=== PATIENT | female | born 1965 | race African-American/Black ===

== ENCOUNTER 2016-07-21 03:20 | Inpatient (IN) | payer MEDICAID, OTHER ==
[~2016-07-21] VITALS: Ht 170.2 cm; Wt 104.5 kg
[2016-07-21] VITALS (8 sets, daily range): BP systolic 108–138; BP diastolic 56–76; PULSE 82–92; RESP 19–20; TEMP 98–98.8; O2SAT 96–97
[~2016-07-21 03:20] MED LIST: CELE40TA PO; MOBI15TA PO; NORV100C PO; QUET1TAB67 PO; REYA150C4 PO; SERO100T PO; TRUVTAB2 PO
[2016-07-21] MEDS ORDERED: SODIUM CHLORID 0.9% 500 ML INJ 500 ML IV ONE (04:00)
[2016-07-21] MEDS ORDERED: PANTOPRAZOLE SODIUM 40 MG VIAL IV PUSH ONE (04:00)
--- NOTE | 2016-07-21 04:02 | PD ---
HPI Chief Complaint: Crawford act Time Seen by Provider: 03:39 Travel History International Travel<30 days: No Contact w/Intl Traveler<30days: No History of Present Illness HPI The patient is a 50 year old male who presents to the [facility] emergency department with a history of being brought in as a Crawford act due to an altercation with her sister prior to arrival. According to the Crawfodr act, the patient had expressed a desire to kill her sister. On arrival to this facility , the patient reports that she was just talking. She reports that she has no intention of harming her sister. Her sister had been asking her for money which made her angry. The Crawford act also states that the patient has a history of bipolar disorder and schizophrenia. The patient denies this. She denies taking any medications for this. The patient denies any suicidal or homicidal ideations. The patient reports that she has been drinking beer this evening. She reports that she has attempted to harm herself when she was a teenager by cutting her left arm. The patient reports that she would never harm herself again. On my arrival to the room, the patient reports that she has left upper quadrant abdominal discomfort. She reports that she has a pressure sensation like gas in that area. Otherwise, on review of systems the patient denies any recent fevers cough, congestion, neck pain, chest pain, shortness of breath, vomiting, diarrhea, urinary symptoms, or neurologic symptoms. PFS Past Medical History Narrative Medical The patient's past medical history is significant for a history of HIV, diagnosed in 1999. The patient reports that she last had her viral load checked last month and it was reportedly undetectable. The patient reports that she is taking her retroviral medications. The patient has a history of asthma. The patient according to the record has a history of psychiatric disorder. Asthma: Yes Autoimmune Disease: Yes (HIV) Bipolar Disorder: Yes Anxiety: Yes Depression: Yes Diabetes: No Diminished Hearing: No Psychiatric: Yes Schizophrenia: No Seizures: No Past Surgical History Narrative Surgical The patient's past surgical history is significant for a hysterectomy. Gynecologic Surgery: Yes (HYSTERECTOMY) Hysterectomy: Yes (TOTAL) Social History Alcohol Use: Yes (beer daily) Tobacco Use: Yes (1 PK DAILY) Substance Use: Yes Allergies-Medications (Allergen,Severity, Reaction): Coded Allergies: Motrin (Unverified Allergy, Severe, 08/29/13) Reported Meds & Prescriptions Reported Meds & Active Scripts Active Reported Celexa (Citalopram Hydrobromide) 40 Mg Tab 40 Mg PO DAILY Seroquel (Quetiapine Fumarate) 25 Mg Tab 25 Mg PO AT 12 NOON Seroquel (Quetiapine Fumarate) 100 Mg Tab 100 Mg PO HS Norvir (Ritonavir) 100 Mg Cap 100 Mg PO DAILY Truvada (Emtricitabine/Tenofovir) Tab 1 Tab PO DAILY Reyataz (Atazanavir) 150 Mg Cap 300 Mg PO DAILY Mobic (Meloxicam) 15 Mg Tab 15 Mg PO BID Review of Systems Except as stated in HPI: all other systems reviewed are Neg General / Constitutional: No: Fever Eyes: No: Visual changes HENT: No: Headaches Cardiovascular: No: Chest Pain or Discomfort Respiratory: No: Shortness of Breath Gastrointestinal: Positive: Abdominal Pain, No: Nausea, Vomiting, Diarrhea, Hematemesis, Hematochezia, Changes in Bowel Habits, Indigestion, Loss of Appetite Genitourinary: No: Dysuria Musculoskeletal: No: Pain Skin: No Rash Neurologic: No: Weakness Psychiatric: No: Depression Endocrine: No: Polydipsia Hematologic/Lymphatic: No: Easy Bruising Physical Exam Narrative General: The patient is a well-developed well-nourished female in no acute distress. Head and Neck exam: Head is normocephalic atraumatic. Eyes: EOMI, pupils are equal round and reactive to light. Nose: Midline septum with pink mucous membranes Mouth: Dentition unremarkable. Moist mucus membranes. Posterior oropharynx is not erythematous. No tonsillar hypertrophy. Uvula midline. Airway patent. Neck: No palpable lymphadenopathy. No nuchal rigidity. No thyromegaly. Cardiovascular: Regular rate and rhythm without murmurs, gallops, or rubs. Lungs: Clear to auscultation bilaterally. No wheezes, rhonchi, or rales. Abdomen: Soft, with reported discomfort on palpation of the left upper quadrant of the abdomen, no other tenderness on palpation of the other quadrants of the abdomen. No guarding, rebound, or rigidity. Normal bowel sounds are audible. No tenderness on palpation of McBurney's point. Negative Tracy sign. Extremities: No clubbing, cyanosis, or edema. 2+ pulses in all 4 extremities. No calf tenderness on palpation. Back: No costovertebral angle tenderness to palpation. Neurologic Exam: Grossly nonfocal. Skin Exam: No rash noted. Intact skin that is warm and dry. Data Data Last Documented VS Vital Signs Date Time Temp Pulse Resp B/P Pulse Ox O2 Delivery O2 Flow Rate FiO2 07/21/16 04:19 98.5 88 20 132/76 96 Orders Electrocardiogram (07/21/16 03:53) Complete Blood Count With Diff (07/21/16 03:53) Comprehensive Metabolic Panel (07/21/16 03:53) Creatine Kinase (Cpk) (07/21/16 03:53) Ckmb (Isoenzyme) Profile (07/21/16 03:53) Troponin I (07/21/16 03:53) Lipase (07/21/16 03:53) Chest, Single Ap (07/21/16 03:53) Iv Access Insert/Monitor (07/21/16 03:53) Ecg Monitoring (07/21/16 03:53) Oximetry (07/21/16 03:53) Psych Screen (07/21/16 03:53) Ed Urine Pregnancytest Poc (07/21/16 03:53) Drug Screen, Random Urine (07/21/16 03:53) Alcohol (Ethanol) (07/21/16 03:53) Salicylates (Aspirin) (07/21/16 03:53) Tylenol (Acetaminophen) (07/21/16 03:53) Sodium Chlorid 0.9% 500 Ml Inj (Ns 500 M (07/21/16 04:00) Pantoprazole Inj (Protonix Inj) (07/21/16 04:00) CKMB (07/21/16 04:03) CKMB% (07/21/16 04:03) Urinalysis - C+S If Indicated (07/21/16 05:15) Admit Order (Ed Use Only) (07/21/16 05:27) Labs Laboratory Tests Test 07/21/16 07/21/16 03:35 04:03 Urine Color LIGHT-YELLOW Urine Turbidity CLEAR Urine pH 5.0 Urine Specific [place] 1.003 Urine Protein NEG mg/dL Urine Glucose (UA) NEG mg/dL Urine Ketones NEG mg/dL Urine Occult Blood NEG Urine Nitrite NEG Urine Bilirubin NEG Urine Urobilinogen LESS THAN 2.0 MG/DL Urine Leukocyte Esterase NEG Urine RBC LESS THAN 1 /hpf Microscopic Urinalysis Comment CULT NOT INDICATED Urine Opiates Screen NEG Urine Barbiturates Screen NEG Urine Amphetamines Screen NEG Urine Benzodiazepines Screen NEG Urine Cocaine Screen POS Urine Cannabinoids Screen NEG White Blood Count 6.7 TH/MM3 Red Blood Count 4.00 MIL/MM3 Hemoglobin 11.8 GM/DL Hematocrit 35.4 % Mean Corpuscular Volume 88.6 FL Mean Corpuscular Hemoglobin 29.5 PG Mean Corpuscular Hemoglobin 33.3 % Concent Red Cell Distribution Width 14.0 % Platelet Count 249 TH/MM3 Mean Platelet Volume 8.3 FL Neutrophils (%) (Auto) 49.4 % Lymphocytes (%) (Auto) 44.5 % Monocytes (%) (Auto) 4.3 % Eosinophils (%) (Auto) 1.1 % Basophils (%) (Auto) 0.7 % Neutrophils # (Auto) 3.3 TH/MM3 Lymphocytes # (Auto) 3.0 TH/MM3 Monocytes # (Auto) 0.3 TH/MM3 Eosinophils # (Auto) 0.1 TH/MM3 Basophils # (Auto) 0.0 TH/MM3 CBC Comment DIFF FINAL Differential Comment Sodium Level 145 MEQ/L Potassium Level 3.7 MEQ/L Chloride Level 107 MEQ/L Carbon Dioxide Level 24.4 MEQ/L Anion Gap 14 MEQ/L Blood Urea Nitrogen 4 MG/DL Creatinine 0.83 MG/DL Estimat Glomerular Filtration 88 ML/MIN Rate Random Glucose 88 MG/DL Calcium Level 8.5 MG/DL Total Bilirubin 0.5 MG/DL Aspartate Amino Transf 57 U/L (AST/SGOT) Alanine Aminotransferase 47 U/L (ALT/SGPT) Alkaline Phosphatase 91 U/L Total Creatine Kinase 2081 U/L Creatine Kinase MB 22.3 NG/ML Creatine Kinase MB % 1.1 % Troponin I LESS THAN 0.02 NG/ML Total Protein 8.3 GM/DL Albumin 3.5 GM/DL Lipase 77 U/L Salicylates Level 4.6 MG/DL Acetaminophen Level LESS THAN 2.0 MCG/ML Ethyl Alcohol Level 229 MG/DL MDM Medical Decision Making Medical Screen Exam Complete: Yes Emergency Medical Condition: Yes Medical Record Reviewed: Yes Interpretation(s) Last Impressions Chest X-Ray 07/21/16 0353 Signed Impressions: Service Date/Time: Thursday, July 21, 2016 04:21 - CONCLUSION: Left lower lobe infiltrate. Stefano Barrera Jr., MD Differential Diagnosis Schizophrenia with acute agitation, versus bipolar disorder with elton and agitation, versus substance induced mood disorder Narrative Course During the course of the patients emergency department visit, the patients history, examination, and differential diagnosis were reviewed with the patient. The patient had IV access obtained and blood work sent for analysis. The patient was placed on a front desk monitor with oximetry and blood pressure monitoring. The patient's Crawford act was reviewed. A psychiatric screen was ordered. The patient had an EKG done on arrival that shows a sinus rhythm heart rate of 91, QRS duration 93 ms, QTC 413 ms, no acute ST segment elevation or depression, T waves are inverted in V1, V2. The patient was initially provided normal saline a 500 mL bolus 1, Protonix 40 mg IV for suspected alcohol-related gastritis. The patients laboratory studies were reviewed and remarkable for a white count of 6.7, hemoglobin 11.8, platelets 249 with 44.5 lymphocytes, CMP is remarkable for BUN of 4, GFR be 8, AST 57, CPK elevated at 2081, MB percent 1.1, troponin I less than 0.02, lipase 77, urine drug screen is positive for cocaine which may be the cause of the rhabdomyolysis, acetaminophen less than 2, alcohol level CCXXIX, salicylate 4.6, urinalysis unremarkable. Radiology studies were reviewed and remarkable for a chest x-ray that shows a left lower lobe infiltrate. The patient was given azithromycin 500 mg IV. The patients results were discussed with the patient, including the plan of care. I explained that further testing and/ or monitoring is indicated based on the patients history, examination, and/ or laboratory findings. Therefore, I recommended admission for additional evaluation. The patient expressed understanding and was agreeable with this plan. The patient was admitted to the hospital in stable condition and sent to a bed under the care of the [facility]. Physician Communication Physician Communication The patient's case was discussed with Dr. Vallecillo who did agree to admit the patient for further evaluation and treatment at this time. Diagnosis Primary Impression: Rhabdomyolysis Qualified Code: M62.82 - Non-traumatic rhabdomyolysis Additional Impressions: Polysubstance abuse Agitation Infiltrate of lung present on imaging of chest Admitting Information Admitting Physician Requests: Sharona Sibley MD July 21, 2016 04:02
[2016-07-21 04:20] LABS: AUTOMATED NEUTROPHIL # 3.3 TH/MM3 (1.8-7.7); BASOPHIL % 0.7 % (0.0-2.0); EOSINOPHIL # 0.1 TH/MM3 (0-0.4); EOSINOPHIL % 1.1 % (0.0-4.0); HEMATOCRIT 35.4 % (35.0-46.0); HEMO FLAGS DIFF FINAL; LYMPH % 44.5 % (9.0-44.0); MEAN CELL VOLUME 88.6 FL (80.0-100.0); MEAN CORPUSCULAR HEMOGLOBIN 29.5 PG (27.0-34.0); MEAN CORPUSCULAR HGB CONC 33.3 % (32.0-36.0); MONO % 4.3 % (0.0-8.0); NEUT % 49.4 % (16.0-70.0); PLATELET COUNT 249 TH/MM3 (150-450); WHITE BLOOD COUNT 6.7 TH/MM3 (4.0-11.0)
[2016-07-21 04:24] LABS: AMPHETAMINE, URINE NEG (NEG); BARBITURATES, URINE NEG (NEG); COCAINE, URINE POS (NEG)
[2016-07-21 04:41] LABS: ANION GAP 14 MEQ/L (5-15); AST (GOT) 57 U/L (15-37); BICARBONATE 24.4 MEQ/L (21.0-32.0); BLOOD UREA NITROGEN 4 MG/DL (7-18); CHLORIDE 107 MEQ/L (98-107); GLOMERULAR FILTRATION RATE 88 ML/MIN (>89); POTASSIUM 3.7 MEQ/L (3.5-5.1); SODIUM (NA) 145 MEQ/L (136-145)
[2016-07-21 04:56] LABS: ACETAMINOPHEN LESS THAN 2.0 MCG/ML (10.0-30.0); ALKALINE PHOSPHATASE 91 U/L (45-117); ALT (GPT) 47 U/L (10-53); CREATINE KINASE 2081 U/L (26-192); TOTAL BILIRUBIN ADULT 0.5 MG/DL (0.2-1.0)
[2016-07-21 05:08] LABS: CKMB 22.3 NG/ML (0.5-3.6)
[2016-07-21] MEDS ORDERED: SODIUM CHLOR 0.9% 1000 ML INJ 1,000 ML IV SCH (05:31)
--- NOTE | 2016-07-21 05:39 | RADRPT ---
EXAM DATE/TIME: 07/21/2016 04:21 [facility] COMPARISON: No previous studies available for comparison. INDICATIONS : Chest pain and cough. MEDICAL HISTORY : HIV Asthma SURGICAL HISTORY : None. ENCOUNTER: Initial ACUITY: 3 days PAIN SCORE: 6/10 LOCATION: Left upper chest FINDINGS: A single portable frontal view the chest shows a left lower lobe infiltrate. Right lung is clear. Hea rt is normal in size. No effusions. CONCLUSION: Left lower lobe infiltrate. Stefano Barrera Jr., MD on July 21, 2016 at 5:36 Board Certified Radiologist. This report was verified electronically.
[2016-07-21] MEDS ORDERED: SODIUM CHLORIDE 0.9% FLUSH 10 ML FLUSH IV FLUSH PRN (05:45)
[2016-07-21] MEDS ORDERED: NALOXONE HCL 0.4 MG/ML AMP IV PRN (05:45)
[2016-07-21 06:58] LABS: BLOOD, URINE NEG (NEG); GLUCOSE,URINE NEG (NEG); KETONE, URINE NEG (NEG); NITRITE,URINE NEG (NEG); URINE COLOR LIGHT-YELLOW (YELLW/STRAW)
[2016-07-21 07:03] LABS: COMMENT (UR) CULT NOT INDICATED; CULTURE IF INDICATED CULT NOT INDICATED
[2016-07-21] MEDS ORDERED: AZITHROMYCIN INJ 500 MG in SODIUM CHLOR 0.9% 250 ML INJ 250 ML IV ONE (07:30)
[2016-07-21] MEDS: SODIUM CHLOR 0.45% 1000 ML INJ 1,000 ML IV SCH ×2 (09:00→23:23)
[2016-07-21] MEDS ORDERED: CITALOPRAM HYDROBROMIDE 40 MG TAB PO SCH (09:00)
[2016-07-21] MEDS ORDERED: LORazepam 2 MG/ML VIAL IV PUSH PRN ×2 (09:30)
[2016-07-21] MEDS ORDERED: FLUMAZENIL 0.5 MG/5 ML VIAL IV PUSH PRN (09:30)
[2016-07-21] MEDS ORDERED: LORazepam 2 MG TAB PO PRN (09:30)
[2016-07-21] MEDS ORDERED: LORazepam 1 MG TAB PO PRN (09:30)
[2016-07-21] MEDS ORDERED: RESP: ALBUTEROL 2.5 MG/IPRATROPIUM 0.5 MG NEB (PRN) NEB (09:30)
--- NOTE | 2016-07-21 09:34 | HHI.HP ---
[facility] Primary Care Physician Admission Diagnosis Rhabdomyolysis, Agitation, Crawford act Diagnoses: Chief Complaint: Chest pain Travel History International Travel<30 Days: No Contact w/Intl Traveler <30 Da: No Traveled to Known Affected Are: No History of Present Illness The patient is a 50-year-old female with a past medical history of HIV who is presenting to the hospital under a Crawford act. The patient said she was talking with her sister and was sort of arguing when she said a few things that she did not mean and was then Crawford acted. The patient said that she had no real ideas of harming her sister or herself. She said she had been drinking beers and that was one of the reasons she was in an argument with her sister. The patient says he typically drinks every day. She did say that about 5 days ago she used a little marijuana and cocaine but she says she does not do that typically. Over the past 4 days the patient has had significant pain around her left breast area. Specifically she says the pain is located under her left breast and is rated at a 9 out of 10 in severity. It is constant in nature. She does have worsening of the chest pain with deep breathing. She also says it hurts more when she coughs. The patient said she has also had cold-like symptoms for the past few days. She endorses green sputum production. She has experienced chills and night sweats. She says she has been constipated for the past few days. She says that she last saw her infectious disease doctor one month ago and everything was going well. She recently relocated from [place] and needs to find a new infectious disease doctor here. The patient says she has a history of depression but she has been taken off of all her pills and she currently denies any depression. Review of Systems Except as stated in HPI: all other systems reviewed are Neg Past Family Social History Past Medical History HIV Asthma Depression Osteoarthritis Allergies: Coded Allergies: Motrin (Unverified Allergy, Severe, 08/29/13) Active Ordered Medications Current Medications Medications (Trade) Dose Ordered Sig/Winnie Route Start Time Stop Time Status Last Admin (NS Flush) 2 ml UNSCH PRN IV FLUSH 07/21/16 05:45 (NS Flush) 2 ml BID IV FLUSH 07/21/16 09:00 Naloxone HCl 0.4 mg 0.4 mg UNSCH PRN IV 07/21/16 05:45 (1/2 NS 1000 ml Inj) 1,000 ml @ 100 mls/hr Q10H IV 07/21/16 09:00 (Reyataz) 300 mg DAILY PO 07/21/16 09:00 (Truvada 200-300 Mg) 1 tab DAILY PO 07/21/16 09:00 Ritonavir 100 mg 100 mg DAILY PO 07/21/16 09:00 (Rocephin Inj/NS Inj) 100 ml @ 200 mls/hr Q24H IV 07/21/16 09:00 Oxycodone HCl 5 mg 5 mg Q4H PRN PO 07/21/16 10:00 (Zithromax Inj/ NS 250 ml Inj) 250 ml @ 250 mls/hr Q24H IV 07/22/16 08:00 UNV (Ofirmev Inj) 1,000 mg Q8HR IV 07/21/16 09:30 07/22/16 22:01 UNV Family History Her mother had a large stroke She says a lot of people in her family have bipolar disorder and schizophrenia Social History She smokes 5 cigarettes daily. She drinks 2+ beers daily. She says she does not typically use illicit substances. Physical Exam Vital Signs Vital Signs Date Time Temp Pulse Resp B/P Pulse Ox O2 Delivery O2 Flow Rate FiO2 07/21/16 07:10 98.4 90 20 108/58 96 07/21/16 06:31 99 18 138/71 99 07/21/16 04:19 98.5 88 20 132/76 96 Physical Exam GENERAL: This is a well-nourished, well-developed patient, in no apparent distress. SKIN: No rashes, ecchymoses or lesions. Cool and dry. HEAD: Atraumatic. Normocephalic. No temporal or scalp tenderness. EYES: Pupils equal round and reactive. Extraocular motions intact. No scleral icterus. No injection or drainage. ENT: Nose without bleeding, purulent drainage or septal hematoma. Throat without erythema, tonsillar hypertrophy or exudate. Uvula midline. Airway patent. NECK: Trachea midline. No JVD or lymphadenopathy. Supple, nontender, no meningeal signs. CARDIOVASCULAR: Regular rate and rhythm without murmurs, gallops, or rubs. RESPIRATORY: Clear to auscultation. Breath sounds equal bilaterally. No wheezes , rales, or rhonchi. GASTROINTESTINAL: Abdomen soft, nondistended. Tender to palpation in the left upper quadrant. No hepato-splenomegaly, or palpable masses. No guarding. MUSCULOSKELETAL: Left chest wall and left upper thoracic area tender to palpation. Extremities with trace edema. NEUROLOGICAL: Awake and alert. Cranial nerves II through XII intact. Motor and sensory grossly within normal limits. Five out of 5 muscle strength in all muscle groups. Normal speech. PSYCH: Flattened affect. Laboratory Laboratory Tests Test 07/21/16 07/21/16 03:35 04:03 Urine Color LIGHT-YELLOW Urine Turbidity CLEAR Urine pH 5.0 Urine Specific [place] 1.003 Urine Protein NEG Urine Glucose (UA) NEG Urine Ketones NEG Urine Occult Blood NEG Urine Nitrite NEG Urine Bilirubin NEG Urine Urobilinogen LESS THAN 2.0 Urine Leukocyte Esterase NEG Urine RBC LESS THAN 1 Microscopic Urinalysis Comment CULT NOT INDICATED Urine Opiates Screen NEG Urine Barbiturates Screen NEG Urine Amphetamines Screen NEG Urine Benzodiazepines Screen NEG Urine Cocaine Screen POS Urine Cannabinoids Screen NEG White Blood Count 6.7 Red Blood Count 4.00 Hemoglobin 11.8 Hematocrit 35.4 Mean Corpuscular Volume 88.6 Mean Corpuscular Hemoglobin 29.5 Mean Corpuscular Hemoglobin 33.3 Concent Red Cell Distribution Width 14.0 Platelet Count 249 Mean Platelet Volume 8.3 Neutrophils (%) (Auto) 49.4 Lymphocytes (%) (Auto) 44.5 Monocytes (%) (Auto) 4.3 Eosinophils (%) (Auto) 1.1 Basophils (%) (Auto) 0.7 Neutrophils # (Auto) 3.3 Lymphocytes # (Auto) 3.0 Monocytes # (Auto) 0.3 Eosinophils # (Auto) 0.1 Basophils # (Auto) 0.0 CBC Comment DIFF FINAL Differential Comment Sodium Level 145 Potassium Level 3.7 Chloride Level 107 Carbon Dioxide Level 24.4 Anion Gap 14 Blood Urea Nitrogen 4 Creatinine 0.83 Estimat Glomerular Filtration 88 Rate Random Glucose 88 Calcium Level 8.5 Total Bilirubin 0.5 Aspartate Amino Transf 57 (AST/SGOT) Alanine Aminotransferase 47 (ALT/SGPT) Alkaline Phosphatase 91 Total Creatine Kinase 2081 Creatine Kinase MB 22.3 Creatine Kinase MB % 1.1 Troponin I LESS THAN 0.02 Total Protein 8.3 Albumin 3.5 Lipase 77 Salicylates Level 4.6 Acetaminophen Level LESS THAN 2.0 Ethyl Alcohol Level 229 Result Diagram: 07/21/16 0403 07/21/16 0403 Imaging Last Impressions Chest X-Ray 07/21/16 0353 Signed Impressions: Service Date/Time: Thursday, July 21, 2016 04:21 - CONCLUSION: Left lower lobe infiltrate. Stefano Barrera Jr., MD Assessment and Plan Assessment and Plan Depression The patient was Crawford acted after having an argument with her sister. The patient denies having intention of hurting her sister for herself. - Psychiatry has been consulted. - Continue sitter. Left sided chest and back pain/ CAP The patient has had chest and back pain for the past few days. Breathing deeply makes it worse. She has associated cough and sputum production. Chest x -ray with left lower lobe infiltrate. Initial troponin negative. EKG without evidence of ischemia. - Treated for pneumonia with ceftriaxone and azithromycin. - Sputum culture and Gram stain. Blood cultures 2. - oxygen and nebs as needed. - thoracic x ray pending. - pain control with a bowel regimen. - telemetry. Rhabdomyolysis CPK noted to be over 2000 on admission. The patient endorses dehydration and has been consuming large amounts of alcohol. - Continue half-normal saline. - Monitor CPK and creatinine. - Advance diet as tolerated. Alcohol abuse Alcohol level was 229 on admission. - CIWA protocol. - seizure precautions. - mvi, folate and thiamine daily. - Cessation instruction. Nicotine/ Cocaine/ MJ use Tox screen positive for cocaine. - Cessation instruction. - Nicotine patch. HIV Last seen by ID one month ago. She needs to find an ID doctor in the area. CXR with infiltrate. - antibiotics as above. - continue antiretrovirals. - Check CD4 count. PPx: SCDs. Discussed Condition With John. Marcell Treviño DO July 21, 2016 09:34
--- NOTE | 2016-07-21 10:09 | RADRPT ---
EXAM DATE/TIME: 07/21/2016 09:53 [facility] COMPARISON: No previous studies available for comparison. INDICATIONS : Back pain for 4 days. MEDICAL HISTORY : Asthma. HIV. SURGICAL HISTORY : None. ENCOUNTER: Initial ACUITY: 4 - 6 days PAIN SCORE: 9/10 LOCATION: Thoracic spine. FINDINGS: There is normal alignment of the thoracic vertebral bodies. Vertebral body height is maintained. No evidence of fracture or subluxation. Pedicles are intact at all levels. The paravertebral reflecti ons are not thickened. Azygous lymph node seen. CONCLUSION: No acute disease. Lyle Covington MD on July 21, 2016 at 10:06 Board Certified Radiologist. This report was verified electronically.
[2016-07-21] MEDS: ACETAMINOPHEN 1000 MG/100 ML VIAL IV SCH ×2 (10:22→17:15)
[2016-07-21] MEDS: SODIUM CHLORIDE 0.9% FLUSH 10 ML FLUSH IV FLUSH SCH ×2 (10:29→21:00)
[2016-07-21] MEDS: cefTRIAXone INJ 1,000 MG in SODIUM CHLORIDE 0.9% INJ 100 ML IV SCH (10:29)
[2016-07-21] MEDS: SENNOSIDES 8.6 MG TAB PO SCH (11:02)
[2016-07-21] MEDS: MULTIVITAMIN TAB PO SCH (11:02)
[2016-07-21] MEDS: RITONAVIR 100 MG TAB PO SCH (11:02)
[2016-07-21] MEDS: FOLIC ACID 1 MG TAB PO SCH (11:02)
[2016-07-21] MEDS: THIAMINE HCL 100 MG TAB PO SCH (11:02)
[2016-07-21] MEDS ORDERED: QUEtiapine FUMARATE 25 MG TAB PO SCH (12:00)
[2016-07-21 12:39] LABS: CREATINE KINASE 1633 U/L (26-192)
[2016-07-21] MEDS: NICOTINE 7 MG/24 HR PATCH T-DERMAL SCH (12:48)
[2016-07-21] MEDS: ATAZANAVIR 150 MG CAP PO SCH (12:48)
[2016-07-21] MEDS: EMTRICITABINE/TENOFOVIR 200 MG/300 MG TAB PO SCH (12:48)
[2016-07-21 12:51] LABS: CKMB 13.7 NG/ML (0.5-3.6)
--- NOTE | 2016-07-21 14:41 | PD.CONS ---
Provisional Diagnosis Admission Date July 21, 2016 at 12:23 History of Present Illness Service Psychiatry Consult Requested By Primary Care Physician No Primary Care Physician HPI The patient is a 50-year-old of woman, domicile with her sister, single , unemployed, on SSI, with psychiatric history of depression and schizophrenia, no previous psychiatric hospitalizations, no previous suicidal attempts, history of self cutting behavior in the adolescence, medical history of HIV, who is presenting to the hospital under a Crawford act. As per ER notes "The patient said she was talking with her sister and was sort of arguing when she said a few things that she did not mean and was then Crawford acted. The patient said that she had no real ideas of harming her sister or herself. She said she had been drinking beers and that was one of the reasons she was in an argument with her sister. The patient says he typically drinks every day. She did say that about 5 days ago she used a little marijuana and cocaine but she says she does not do that typically. Left sided chest and back pain/ CA The patient has had chest and back pain for the past few days. Breathing deeply makes it worse. She has associated cough and sputum production. Chest x-ray with left lower lobe infiltrate. Initial troponin negative. EKG without evidence of ischemia.Treated for pneumonia with ceftriaxone and azithromycin. Also shows Rhabdomyolysis. CPK noted to be over 2000 on admission. The patient endorses dehydration and has been consuming large amounts of alcohol and cocaine. Initial BAL was 229, she is now in CIWA protocol. On psychiatric evaluation patient is found sleeping, easily arousable, kind of irritable and meza. She reports that she was drunk last night and she never men that she wanted to kill her sister. She says that she loves her sister and would never hurt her "even though, like almost all sisters, we have a lot of arguments". Patient denies depressive symptoms, she denies anxiety, she denies suicidal or homicidal ideation, she denies perceptual disturbances, she denies visual and auditory hallucinations. Patient is logical, coherent and relevant. No attention deficit, no delusions, no paranoia, no agitation, no aggressive behavior present. Patient reports a remote history of depression, "also I was misdiagnosed with schizophrenia, I never needed treatment, I was just a histrionic self cutter as in the lessons, but I didn't maybe 2 times". She denies taking any psychotropics for at least 30 years. She reports frequent use of cocaine and alcohol, 2-4 beers about 3 times per week she denies withdrawal symptoms, she denies history of detox rehabilitation programs in the past. Review of Systems Constitutional: DENIES: Diaphoretic episodes, Fatigue, Fever, Weight gain, Weight loss, Chills, Dizziness, Change in appetite, Night Sweats Endocrine: DENIES: Abnorml menstrual pattern, Heat/cold intolerance, Polydipsia , Polyuria, Polyphagia Eyes: DENIES: Blurred vision, Diplopia, Eye inflammation, Eye pain, Vision loss , Photosensitivity, Double Vision Ears, nose, mouth, throat: DENIES: Tinnitus, Hearing loss, Vertigo, Nasal discharge, Oral lesions, Throat pain, Hoarseness, Ear Pain, Running Nose, Epistaxis, Sinus Pain, Toothache, Odynophagia Respiratory: DENIES: Apneas, Cough, Snoring, Wheezing, Hemoptysis, Sputum production, Shortness of breath Cardiovascular: DENIES: Chest pain, Palpitations, Syncope, Dyspnea on Exertion , PND, Lower Extremity Edema, Orthopnea, Claudication Gastrointestinal: DENIES: Abdominal pain, Black stools, Bloody stools, Constipation, Diarrhea, Nausea, Vomiting, Difficulty Swallowing, Anorexia Genitourinary: DENIES: Abnormal vaginal bleeding, Dysmenorrhea, Dyspareunia, Sexual dysfunction, Urinary frequency, Urinary incontinence, Urgency, Hematuria , Dysuria, Nocturia, Vaginal discharge Musculoskeletal: DENIES: Joint pain, Muscle aches, Stiffness, Joint Swelling, Back pain, Neck pain Integumentary: DENIES: Abnormal pigmentation, Pruritus, Rash, Nail changes, Breast masses, Breast skin changes, Nipple discharge Hematologic/lymphatic: DENIES: Bruising, Lymphadenopathy Immunologic/allergic: DENIES: Eczema, Urticaria Neurologic: DENIES: Abnormal gait, Headache, Localized weakness, Paresthesias, Seizures, Speech Problems, Tremor, Poor Balance Psychiatric: DENIES: Anxiety, Confusion, Mood changes, Depression, Hallucinations, Agitation, Suicidal Ideation, Homicidal Ideation, Delusions Past Family Social History Coded Allergies: Motrin (Unverified Allergy, Severe, 08/29/13) Reported Medications Citalopram Hydrobromide (Celexa)40 Mg Tab40 Mg PO DAILY 09/13/13 Quetiapine Fumarate (Seroquel)25 Mg Tab25 Mg PO AT 12 NOON 09/13/13 Quetiapine Fumarate 100 mg (Seroquel 100 mg)100 Mg [id number] Mg PO HS 09/13/13 Ritonavir (Norvir)100 Mg [id number] Mg PO DAILY 08/29/13 Emtricitabine-Tenofovir Disopr (Truvada) Tab1 Tab PO DAILY 08/29/13 Atazanavir Sulfate (Reyataz)150 Mg [id number] Mg PO DAILY 08/29/13 Meloxicam (Mobic)15 Mg Tab15 Mg PO BID 08/29/13 Current Medications Medications (Trade) Dose Ordered Sig/Winnie Route Start Time Stop Time Status Last Admin (NS Flush) 2 ml UNSCH PRN IV FLUSH 07/21/16 05:45 (NS Flush) 2 ml BID IV FLUSH 07/21/16 09:00 07/21/16 10:29 Naloxone HCl 0.4 mg 0.4 mg UNSCH PRN IV 07/21/16 05:45 (1/2 NS 1000 ml Inj) 1,000 ml @ 100 mls/hr Q10H IV 07/21/16 09:00 (Reyataz) 300 mg DAILY PO 07/21/16 09:00 07/21/16 12:48 (Truvada 200-300 Mg) 1 tab DAILY PO 07/21/16 09:00 07/21/16 12:48 Ritonavir 100 mg 100 mg DAILY PO 07/21/16 09:00 07/21/16 11:02 (Rocephin Inj/NS Inj) 100 ml @ 200 mls/hr Q24H IV 07/21/16 09:00 07/21/16 10:29 Oxycodone HCl 5 mg 5 mg Q4H PRN PO 07/21/16 10:00 (Zithromax Inj/ NS 250 ml Inj) 250 ml @ 250 mls/hr Q24H IV 07/22/16 08:00 (Ofirmev Inj) 1,000 mg Q8H IV 07/21/16 10:00 07/23/16 02:01 07/21/16 10:22 (Colace) 100 mg BID PO 07/21/16 21:00 (Senokot) 17.2 mg DAILY PO 07/21/16 09:30 07/21/16 11:02 (Romazicon Inj) 0.2 mg Q1M PRN IV PUSH 07/21/16 09:30 (Ativan) 1 mg Q4H PRN PO 07/21/16 09:30 (Ativan) 2 mg Q2H PRN PO 07/21/16 09:30 (Ativan Inj) 2 mg Q1H PRN IV PUSH 07/21/16 09:30 (Ativan Inj) 2 mg Q15M PRN IV PUSH 07/21/16 09:30 (Vitamin B1) 100 mg DAILY PO 07/21/16 09:30 07/21/16 11:02 (Theragran) 1 tab DAILY PO 07/21/16 09:30 07/21/16 11:02 (Folate) 1 mg DAILY PO 07/21/16 09:30 07/21/16 11:02 (Habitrol 7 Mg Patch.24 Hr) 1 patch DAILY T-DERMAL 07/21/16 09:30 07/21/16 12:48 Miscellaneous Information 1 DAILY T-DERMAL 07/22/16 09:00 Family History Patient says that her sister is bipolar Social History Patient was born and raised in [facility], she lives in [place], she is single, she has 4 kids, supported by [employer], highest level of education is 12th grade Patient's Strengths (min. 2) Verbal communication Physical Exam A physical exam, no EPS, no tremors, no stiffness, no psychomotor retardation or agitation, no withdrawal present Vital Signs Vital Signs Date Time Temp Pulse Resp B/P Pulse Ox O2 Delivery O2 Flow Rate FiO2 07/21/16 11:45 98.8 82 20 112/56 96 Lab Results WBC of 6.7, hemoglobin 11.8, platelets 249 with 44.5 lymphocytes, CMP is remarkable for BUN of 4, GFR be 8, AST 57, CPK elevated at 2081, MB percent 1.1 , troponin I less than 0.02, lipase 77, urine drug screen is positive for cocaine acetaminophen less than 2, alcohol level 229, salicylate 4.6, urinalysis unremarkable. Chest x-ray that shows a left lower lobe infiltrate. The patient was given azithromycin 500 mg IV. The patient had an EKG done on arrival that shows a sinus rhythm heart rate of 91, QRS duration 93 ms, QTC 413 ms, no acute ST segment elevation or depression , T waves are inverted in V1 Mental Status Examination Appearance woman, in hospital [facility], age appearing, good hygiene, kind of distant, irritable, cooperative Speech: Hesitant Orientation: x3 Memory: Unremarkable Thought Process: Logical Thought Content: Unremarkable Hallucination Type: None Suicidal Ideation: No Previous Suicide Attempts: No Homicidal Ideation: No Affect: Irritable Mood: Irritable Motor Activity: Normal gait Assessment & Plan Problem List: (1) Alcohol abuse with alcohol-induced mood disorder Assessment & Plan: On psychiatric evaluation today the patient does not present any evidence of depression, anxiety, elton or psychosis. She denies suicidal or homicidal ideation, she denies visual and auditory hallucinations. She is coherent, relevant and logical in her conversation. Recent argument with her sister seems to be the result of cocaine and alcohol intoxication and no the result of a primary major psychiatric condition. Medical examination patient was found with acute pneumonia and elevated CPK/rhabdomyolysis, treated as mentioned above. She does not meet criteria for psychiatric admission at this moment. Detox referral offered, patient declined. Extensive support, motivation psycho education provided. Crawford act will be lifted.. ICD Code: F10.14 Assessment & Plan Estimated LOS: Prosper Deng MD July 21, 2016 14:41
--- NOTE | 2016-07-21 19:25 | EKG ---
Date Performed: 07/21/2016 Time Performed: 04:25:01 PTAGE: 50 years EKG: Sinus rhythm NORMAL ECG NO PREVIOUS TRACING DOCTOR: Danyel Sol Interpretating Date/Time 07/21/2016 19:23:12
[2016-07-21] MEDS ORDERED: QUEtiapine FUMARATE 100 MG TAB PO SCH (21:00)
[2016-07-21] MEDS: DOCUSATE SODIUM 100 MG CAP PO SCH (23:22)
[2016-07-22] VITALS (7 sets, daily range): BP systolic 125–154; BP diastolic 66–79; PULSE 71–85; RESP 16–22; TEMP 97.9–98.3; O2SAT 96–98
[2016-07-22] MEDS: SODIUM CHLOR 0.45% 1000 ML INJ 1,000 ML IV SCH ×3 (02:39→20:50)
[2016-07-22] MEDS: ACETAMINOPHEN 1000 MG/100 ML VIAL IV SCH ×3 (02:39→17:39)
[2016-07-22 06:27] LABS: AUTOMATED NEUTROPHIL # 1.7 TH/MM3 (1.8-7.7); BASOPHIL % 0.4 % (0.0-2.0); EOSINOPHIL # 0.1 TH/MM3 (0-0.4); EOSINOPHIL % 2.4 % (0.0-4.0); HEMATOCRIT 31.7 % (35.0-46.0); HEMO FLAGS DIFF FINAL; LYMPH % 50.2 % (9.0-44.0); LYMPHOCYTE # 2.2 TH/MM3 (1.0-4.8); MEAN CELL VOLUME 88.8 FL (80.0-100.0); MEAN CORPUSCULAR HEMOGLOBIN 28.5 PG (27.0-34.0); MEAN CORPUSCULAR HGB CONC 32.2 % (32.0-36.0); MONO % 7.5 % (0.0-8.0); NEUT % 39.5 % (16.0-70.0); PLATELET COUNT 211 TH/MM3 (150-450); RED BLOOD COUNT 3.57 MIL/MM3 (4.00-5.30); RED CELL DISTRIBUTION WIDTH 13.8 % (11.6-17.2); WHITE BLOOD COUNT 4.3 TH/MM3 (4.0-11.0)
[2016-07-22 06:53] LABS: BICARBONATE 25.6 MEQ/L (21.0-32.0); POTASSIUM 3.8 MEQ/L (3.5-5.1)
[2016-07-22] MEDS: THIAMINE HCL 100 MG TAB PO SCH (08:39)
[2016-07-22] MEDS: EMTRICITABINE/TENOFOVIR 200 MG/300 MG TAB PO SCH (08:39)
[2016-07-22] MEDS: AZITHROMYCIN INJ 500 MG in SODIUM CHLOR 0.9% 250 ML INJ 250 ML IV SCH (08:39)
[2016-07-22] MEDS: MULTIVITAMIN TAB PO SCH (08:39)
[2016-07-22] MEDS: ATAZANAVIR 150 MG CAP PO SCH (08:39)
[2016-07-22] MEDS: SENNOSIDES 8.6 MG TAB PO SCH (08:39)
[2016-07-22] MEDS: RITONAVIR 100 MG TAB PO SCH (08:39)
[2016-07-22] MEDS: SODIUM CHLORIDE 0.9% FLUSH 10 ML FLUSH IV FLUSH SCH ×2 (08:41→20:51)
[2016-07-22] MEDS: NICOTINE 7 MG/24 HR PATCH T-DERMAL SCH (08:42)
[2016-07-22] MEDS: REMOVE OLD PATCH T-DERMAL SCH (09:00)
[2016-07-22] MEDS: DOCUSATE SODIUM 100 MG CAP PO SCH ×2 (10:16→20:49)
[2016-07-22] MEDS: FOLIC ACID 1 MG TAB PO SCH (10:16)
[2016-07-22] MEDS: cefTRIAXone INJ 1,000 MG in SODIUM CHLORIDE 0.9% INJ 100 ML IV SCH (10:17)
[2016-07-22 16:53] LABS: CKMB 6.3 NG/ML (0.5-3.6)
--- NOTE | 2016-07-22 17:44 | HHI.PR ---
Subjective Remarks The pt complained of left sided chest wall pain. She said it hurts when she breathes and coughs. She had no other acute complaints. Objective Vitals Vital Signs Date Time Temp Pulse Resp B/P Pulse Ox O2 Delivery O2 Flow Rate FiO2 07/22/16 13:08 17 07/22/16 11:41 98.2 77 20 143/75 98 07/22/16 07:38 71 07/22/16 07:22 98.3 76 20 154/79 98 07/22/16 03:59 20 07/22/16 03:49 97.9 85 20 125/75 96 07/21/16 23:13 98.0 89 20 126/74 96 07/21/16 19:37 98.1 90 19 129/61 96 Result Diagram: 07/22/1651607/22/16516 Imaging Last Impressions Chest X-Ray 07/21/16 0353 Signed Impressions: Service Date/Time: Thursday, July 21, 2016 04:21 - CONCLUSION: Left lower lobe infiltrate. Stefano Barrera Jr., MD Thoracic Spine X-Ray 07/21/16 0000 Signed Impressions: Service Date/Time: Thursday, July 21, 2016 09:53 - CONCLUSION: No acute disease. Lyle Covington MD Objective Remarks GENERAL: This is a well-nourished, well-developed patient, in no apparent distress. SKIN: No rashes, ecchymoses or lesions. Cool and dry. HEAD: Atraumatic. Normocephalic. No temporal or scalp tenderness. EYES: Pupils equal round and reactive. Extraocular motions intact. No scleral icterus. No injection or drainage. ENT: Nose without bleeding, purulent drainage or septal hematoma. Throat without erythema, tonsillar hypertrophy or exudate. Uvula midline. Airway patent. NECK: Trachea midline. No JVD or lymphadenopathy. Supple, nontender, no meningeal signs. CARDIOVASCULAR: Regular rate and rhythm without murmurs, gallops, or rubs. Reproducible chest pain to palpation. RESPIRATORY: Clear to auscultation. Breath sounds equal bilaterally. No wheezes , rales, or rhonchi. GASTROINTESTINAL: Abdomen soft, nondistended. Tender to palpation in the left upper quadrant. No hepato-splenomegaly, or palpable masses. No guarding. MUSCULOSKELETAL: Left chest wall and left upper thoracic area tender to palpation. Extremities with trace edema. NEUROLOGICAL: Awake and alert. Cranial nerves II through XII intact. Motor and sensory grossly within normal limits. Five out of 5 muscle strength in all muscle groups. Normal speech. PSYCH: Flattened affect. Medications and IVs Current Medications Medications (Trade) Dose Ordered Sig/Winnie Route Start Time Stop Time Status Last Admin (NS Flush) 2 ml UNSCH PRN IV FLUSH 07/21/16 05:45 (NS Flush) 2 ml BID IV FLUSH 07/21/16 09:00 07/22/16 08:41 Naloxone HCl 0.4 mg 0.4 mg UNSCH PRN IV 07/21/16 05:45 (1/2 NS 1000 ml Inj) 1,000 ml @ 100 mls/hr Q10H IV 07/21/16 09:00 07/22/16 15:08 (Reyataz) 300 mg DAILY PO 07/21/16 09:00 07/22/16 08:39 (Truvada 200-300 Mg) 1 tab DAILY PO 07/21/16 09:00 07/22/16 08:39 Ritonavir 100 mg 100 mg DAILY PO 07/21/16 09:00 07/22/16 08:39 (Rocephin Inj/NS Inj) 100 ml @ 200 mls/hr Q24H IV 07/21/16 09:00 07/22/16 10:17 Oxycodone HCl 5 mg 5 mg Q4H PRN PO 07/21/16 10:00 07/21/16 23:23 (Zithromax Inj/ NS 250 ml Inj) 250 ml @ 250 mls/hr Q24H IV 07/22/16 08:00 07/22/16 08:39 (Ofirmev Inj) 1,000 mg Q8H IV 07/21/16 10:00 07/23/16 02:01 07/22/16 11:46 (Colace) 100 mg BID PO 07/21/16 21:00 07/22/16 10:16 (Senokot) 17.2 mg DAILY PO 07/21/16 09:30 07/22/16 08:39 (Romazicon Inj) 0.2 mg Q1M PRN IV PUSH 07/21/16 09:30 (Ativan) 1 mg Q4H PRN PO 07/21/16 09:30 (Ativan) 2 mg Q2H PRN PO 07/21/16 09:30 (Ativan Inj) 2 mg Q1H PRN IV PUSH 07/21/16 09:30 (Ativan Inj) 2 mg Q15M PRN IV PUSH 07/21/16 09:30 (Vitamin B1) 100 mg DAILY PO 07/21/16 09:30 07/22/16 08:39 (Theragran) 1 tab DAILY PO 07/21/16 09:30 07/22/16 08:39 (Folate) 1 mg DAILY PO 07/21/16 09:30 07/22/16 10:16 (Habitrol 7 Mg Patch.24 Hr) 1 patch DAILY T-DERMAL 07/21/16 09:30 07/22/16 08:42 Miscellaneous Information 1 DAILY T-DERMAL 07/22/16 09:00 07/22/16 09:00 A/P Assessment and Plan Depression The patient was Crawford acted after having an argument with her sister. The patient denies having intention of hurting her sister for herself. - Psychiatry has been consulted. Crawford Act has been lifted. Left sided chest and back pain/ CAP The patient has had chest and back pain for the past few days. Breathing deeply makes it worse. She has associated cough and sputum production. Chest x -ray with left lower lobe infiltrate. Initial troponin negative. EKG without evidence of ischemia. Thoracic CXR unremarkable. - Treat for pneumonia with ceftriaxone and azithromycin. - Sputum culture and Gram stain. Blood cultures 2. - oxygen and nebs as needed. - pain control with a bowel regimen. - telemetry. - rib x ray pending. Rhabdomyolysis CPK noted to be over 2000 on admission. The patient endorses dehydration and has been consuming large amounts of alcohol. Improved. - Continue half-normal saline. - Monitor CPK and creatinine. - Advance diet as tolerated. Alcohol abuse Alcohol level was 229 on admission. - CIWA protocol. - seizure precautions. - mvi, folate and thiamine daily. - Cessation instruction. Nicotine/ Cocaine/ MJ use Tox screen positive for cocaine. - Cessation instruction. - Nicotine patch. HIV Last seen by ID one month ago. She needs to find an ID doctor in the area. CXR with infiltrate. - antibiotics as above. - continue antiretrovirals. - Check CD4 count. PPx: SCDs. Discharge Planning Awaiting clinical improvement. Marcell Treviño DO July 22, 2016 17:44
--- NOTE | 2016-07-22 18:23 | RADRPT ---
EXAM DATE/TIME: 07/22/2016 18:11 [facility] COMPARISON: CHEST SINGLE AP, July 21, 2016, 4:21. INDICATIONS : Rib pain with no known injury. MEDICAL HISTORY : None. SURGICAL HISTORY : None. ENCOUNTER: Initial ACUITY: 1 week PAIN SCORE: 10/10 LOCATION: Left lateral ribs. FINDINGS: There is slight focal angulation of the lateral aspect of what I believe are the left fourth and fift h ribs, likely site of minimally displaced fractures. There is slight contusion, atelectasis or infil trate in the left lung base. No evidence of pneumothorax. Mild stable prominence of the cardiac silho uette. CONCLUSION: Slightly angulated left lateral fourth and fifth rib fractures Edmar Stewart MD on July 22, 2016 at 18:19 Board Certified Radiologist. This report was verified electronically.
[2016-07-23] VITALS (7 sets, daily range): BP systolic 118–148; BP diastolic 60–86; PULSE 69–82; RESP 16–22; TEMP 98–98.6; O2SAT 93–97
[2016-07-23] MEDS: ACETAMINOPHEN 1000 MG/100 ML VIAL IV SCH (01:55)
[2016-07-23 03:51] LABS: CD4/CD8 RATIO 1.3 (0.86-5.00)
[2016-07-23] MEDS: cefTRIAXone INJ 1,000 MG in SODIUM CHLORIDE 0.9% INJ 100 ML IV SCH (08:35)
[2016-07-23] MEDS: THIAMINE HCL 100 MG TAB PO SCH (08:35)
[2016-07-23] MEDS: AZITHROMYCIN INJ 500 MG in SODIUM CHLOR 0.9% 250 ML INJ 250 ML IV SCH (08:35)
[2016-07-23] MEDS: FOLIC ACID 1 MG TAB PO SCH (08:35)
[2016-07-23] MEDS: SENNOSIDES 8.6 MG TAB PO SCH (08:36)
[2016-07-23] MEDS: SODIUM CHLORIDE 0.9% FLUSH 10 ML FLUSH IV FLUSH SCH ×2 (08:36→21:00)
[2016-07-23] MEDS: MULTIVITAMIN TAB PO SCH (08:36)
[2016-07-23] MEDS: DOCUSATE SODIUM 100 MG CAP PO SCH ×2 (08:36→21:41)
[2016-07-23] MEDS: ATAZANAVIR 150 MG CAP PO SCH ×2 (08:36→08:46)
[2016-07-23] MEDS: NICOTINE 7 MG/24 HR PATCH T-DERMAL SCH (08:46)
[2016-07-23] MEDS: RITONAVIR 100 MG TAB PO SCH (08:46)
[2016-07-23] MEDS: EMTRICITABINE/TENOFOVIR 200 MG/300 MG TAB PO SCH (08:46)
[2016-07-23] MEDS: REMOVE OLD PATCH T-DERMAL SCH (08:46)
--- NOTE | 2016-07-23 09:22 | HHI.PR ---
Subjective Remarks The patient was sitting up in bed. She said she was informed she had rib fractures and wanted to know how she got them. She believes it might have been from lifting heavy objects. She says she is able to take ibuprofen but not Motrin. Objective Vitals Vital Signs Date Time Temp Pulse Resp B/P Pulse Ox O2 Delivery O2 Flow Rate FiO2 07/23/16 08:00 98.6 74 20 118/80 95 07/23/16 04:00 98.2 80 16 120/60 96 07/23/16 00:00 98.2 82 18 135/68 95 07/22/16 20:00 78 07/22/16 20:00 98.0 80 16 125/66 96 07/22/16 16:02 76 07/22/16 15:50 97.9 75 22 141/75 97 07/22/16 13:08 17 07/22/16 11:41 98.2 77 20 143/75 98 I/O 07/22/16 07/22/16 07/22/16 07/23/16 07/23/16 07/23/16 07:00 15:00 23:00 07:00 15:00 23:00 Intake Total 240 ml 480 ml Balance 240 ml 480 ml Intake Oral 240 ml 480 ml # Voids 1 3 # Bowel Movements 0 0 Result Diagram: 07/22/1651607/22/16 05 Imaging Last Impressions Ribs X-Ray 07/22/16 0000 Signed Impressions: Service Date/Time: July 18:11 - CONCLUSION: Slightly angulated left lateral fourth and fifth rib fractures Edmar Stewart MD Chest X-Ray 07/21/16 0353 Signed Impressions: Service Date/Time: Thursday, July 21, 2016 04:21 - CONCLUSION: Left lower lobe infiltrate. Stefano Barrera Jr., MD Thoracic Spine X-Ray 07/21/16 0000 Signed Impressions: Service Date/Time: Thursday, July 21, 2016 09:53 - CONCLUSION: No acute disease. Lyle Covington MD Objective Remarks GENERAL: This is a well-nourished, well-developed patient, in no apparent distress. SKIN: No rashes, ecchymoses or lesions. Cool and dry. HEAD: Atraumatic. Normocephalic. No temporal or scalp tenderness. EYES: Pupils equal round and reactive. Extraocular motions intact. No scleral icterus. No injection or drainage. ENT: Nose without bleeding, purulent drainage or septal hematoma. Throat without erythema, tonsillar hypertrophy or exudate. Uvula midline. Airway patent. NECK: Trachea midline. No JVD or lymphadenopathy. Supple, nontender, no meningeal signs. CARDIOVASCULAR: Regular rate and rhythm without murmurs, gallops, or rubs. Reproducible chest pain to palpation. RESPIRATORY: Clear to auscultation. Breath sounds equal bilaterally. No wheezes , rales, or rhonchi. GASTROINTESTINAL: Abdomen soft, nondistended. Tender to palpation in the left upper quadrant. No hepato-splenomegaly, or palpable masses. No guarding. MUSCULOSKELETAL: Left chest wall and left upper thoracic area tender to palpation. Extremities with trace edema. NEUROLOGICAL: Awake and alert. Cranial nerves II through XII intact. Motor and sensory grossly within normal limits. Five out of 5 muscle strength in all muscle groups. Normal speech. PSYCH: Mood and affect appropriate. Medications and IVs Current Medications Medications (Trade) Dose Ordered Sig/Winnie Route Start Time Stop Time Status Last Admin (NS Flush) 2 ml UNSCH PRN IV FLUSH 07/21/16 05:45 (NS Flush) 2 ml BID IV FLUSH 07/21/16 09:00 07/23/16 08:36 Naloxone HCl 0.4 mg 0.4 mg UNSCH PRN IV 07/21/16 05:45 (1/2 NS 1000 ml Inj) 1,000 ml @ 100 mls/hr Q10H IV 07/21/16 09:00 07/22/16 20:50 (Reyataz) 300 mg DAILY PO 07/21/16 09:00 07/23/16 08:46 (Truvada 200-300 Mg) 1 tab DAILY PO 07/21/16 09:00 07/23/16 08:46 Ritonavir 100 mg 100 mg DAILY PO 07/21/16 09:00 07/23/16 08:46 (Rocephin Inj/NS Inj) 100 ml @ 200 mls/hr Q24H IV 07/21/16 09:00 07/23/16 08:35 Oxycodone HCl 5 mg 5 mg Q4H PRN PO 07/21/16 10:00 07/23/16 08:47 (Zithromax Inj/ NS 250 ml Inj) 250 ml @ 250 mls/hr Q24H IV 07/22/16 08:00 07/23/16 08:35 (Colace) 100 mg BID PO 07/21/16 21:00 07/23/16 08:36 (Senokot) 17.2 mg DAILY PO 07/21/16 09:30 07/23/16 08:36 (Romazicon Inj) 0.2 mg Q1M PRN IV PUSH 07/21/16 09:30 (Ativan) 1 mg Q4H PRN PO 07/21/16 09:30 (Ativan) 2 mg Q2H PRN PO 07/21/16 09:30 (Ativan Inj) 2 mg Q1H PRN IV PUSH 07/21/16 09:30 (Ativan Inj) 2 mg Q15M PRN IV PUSH 07/21/16 09:30 (Vitamin B1) 100 mg DAILY PO 07/21/16 09:30 07/23/16 08:35 (Theragran) 1 tab DAILY PO 07/21/16 09:30 07/23/16 08:36 (Folate) 1 mg DAILY PO 07/21/16 09:30 07/23/16 08:35 (Habitrol 7 Mg Patch.24 Hr) 1 patch DAILY T-DERMAL 07/21/16 09:30 07/23/16 08:46 Miscellaneous Information 1 DAILY T-DERMAL 07/22/16 09:00 07/23/16 08:46 (Motrin) 800 mg Q8HR PO 07/23/16 09:15 UNV A/P Assessment and Plan Depression The patient was Crawford acted after having an argument with her sister. The patient denies having intention of hurting her sister for herself. - Psychiatry has been consulted. Crawford Act has been lifted. Left sided chest and back pain/ CAP The patient has had chest and back pain for the past few days. Breathing deeply makes it worse. She has associated cough and sputum production. Chest x -ray with left lower lobe infiltrate. Initial troponin negative. EKG without evidence of ischemia. Thoracic x ray unremarkable. Rib e x ray showed slightly angulated left lateral fourth and fifth rib fractures. Per pt likely s/t heavy lifting. Also has been coughing heavily. - Treat for pneumonia with ceftriaxone and azithromycin. - Sputum culture and Gram stain. Blood cultures 2. - oxygen and nebs as needed. - pain control with a bowel regimen. Add ibuprofen. The pt says she can take ibuprofen as long as it's not Motrin. - PT eval. Abdominal binder requested. - check vitamin D levels. Rhabdomyolysis CPK noted to be over 2000 on admission. The patient endorses dehydration and has been consuming large amounts of alcohol. Improved. - Continue half-normal saline. - Monitor CPK and creatinine. - Advance diet as tolerated. Alcohol abuse Alcohol level was 229 on admission. - CIWA protocol. - seizure precautions. - mvi, folate and thiamine daily. - Cessation instruction. Nicotine/ Cocaine/ MJ use Tox screen positive for cocaine. - Cessation instruction. - Nicotine patch. HIV Last seen by ID one month ago. She needs to find an ID doctor in the area. CXR with infiltrate. CD4 count 923. - antibiotics as above. - continue antiretrovirals. PPx: SCDs. Discharge Planning Anticipate discharge home tomorrow if pain controlled. Marcell Treviño DO July 23, 2016 09:22
[2016-07-23 09:31] LABS: HEMATOCRIT 32.5 % (35.0-46.0); MEAN CELL VOLUME 89.1 FL (80.0-100.0); MEAN CORPUSCULAR HEMOGLOBIN 28.4 PG (27.0-34.0); MEAN CORPUSCULAR HGB CONC 31.9 % (32.0-36.0); PLATELET COUNT 219 TH/MM3 (150-450); RED BLOOD COUNT 3.64 MIL/MM3 (4.00-5.30); REVIEW FLAG FINAL; WHITE BLOOD COUNT 4.5 TH/MM3 (4.0-11.0)
[2016-07-23 10:30] LABS: BICARBONATE 24.9 MEQ/L (21.0-32.0); POTASSIUM 3.8 MEQ/L (3.5-5.1)
[2016-07-23 10:52] LABS: CKMB 2.5 NG/ML (0.5-3.6)
[2016-07-23] MEDS: SODIUM CHLOR 0.45% 1000 ML INJ 1,000 ML IV SCH ×2 (11:00→21:41)
[2016-07-23] MEDS: IBUPROFEN 800 MG TAB PO SCH ×3 (12:07→21:41)
[2016-07-23] MEDS ORDERED: ERGOCALCIFEROL (VIT D2) 50,000 UNIT CAP PO SCH (17:00)
[2016-07-24 00:40] VITALS: BP 137/78; PULSE 70; RESP 18; TEMP 97.8; O2SAT 97
[2016-07-24 04:57] VITALS: BP 140/80; PULSE 69; RESP 18; TEMP 97.3; O2SAT 96
[2016-07-24] MEDS: SODIUM CHLOR 0.45% 1000 ML INJ 1,000 ML IV SCH (05:32)
[2016-07-24] MEDS: IBUPROFEN 800 MG TAB PO SCH (05:32)
[2016-07-24 08:00] VITALS: PULSE 86
[2016-07-24 08:01] VITALS: BP 137/69; PULSE 65; RESP 18; TEMP 97.7; O2SAT 95
[2016-07-24] MEDS ORDERED: DRIS50002 PO (08:51)
[2016-07-24] MEDS ORDERED: OXYC-392 PO (08:51)
[2016-07-24] MEDS ORDERED: AZIT250T3 PO ×2 (08:56→09:08)
[2016-07-24] MEDS ORDERED: CEFT500T3 PO (08:56)
--- NOTE | 2016-07-24 09:00 | HHI.DCPOC ---
Discharge Care Plan Diagnosis: (1) Agitation (2) Polysubstance abuse (3) Rhabdomyolysis (4) Infiltrate of lung present on imaging of chest (5) Rib fractures Goals to Promote Your Health * To prevent worsening of your condition and complications * To maintain your health at the optimal level Directions to Meet Your Goals Take your medications as prescribed Follow your dietary instruction Follow activity as directed Keep your appointments as scheduled Take your immunizations and boosters as scheduled If your symptoms worsen call your PCP, if no PCP go to Urgent Care Center or Emergency Room Smoking is Dangerous to Your Health. Avoid second hand smoke Call the 24-hour hour crisis hotline for domestic abuse at Marcell Treviño DO July 24, 2016 09:00
--- NOTE | 2016-07-24 09:07 | HHI.DS ---
Discharge Summary Admission Date July 21, 2016 at 12:23 Discharge Date: July 24, 2016 Admitting Diagnosis Rhabdomyolysis, Agitation, Crawford act (1) Rhabdomyolysis ICD Code: M62.82 (2) Rib fractures ICD Code: S22.39XA Diagnosis: Principal (3) Agitation ICD Code: R45.1 (4) Polysubstance abuse ICD Code: F19.10 (5) Infiltrate of lung present on imaging of chest ICD Code: R91.8 Procedures None. Brief History - From Admission The patient is a 50-year-old female with a past medical history of HIV who is presenting to the hospital under a Crawford act. The patient said she was talking with her sister and was sort of arguing when she said a few things that she did not mean and was then Crawford acted. The patient said that she had no real ideas of harming her sister or herself. She said she had been drinking beers and that was one of the reasons she was in an argument with her sister. The patient says he typically drinks every day. She did say that about 5 days ago she used a little marijuana and cocaine but she says she does not do that typically. Over the past 4 days the patient has had significant pain around her left breast area. Specifically she says the pain is located under her left breast and is rated at a 9 out of 10 in severity. It is constant in nature. She does have worsening of the chest pain with deep breathing. She also says it hurts more when she coughs. The patient said she has also had cold-like symptoms for the past few days. She endorses green sputum production. She has experienced chills and night sweats. She says she has been constipated for the past few days. She says that she last saw her infectious disease doctor one month ago and everything was going well. She recently relocated from [place] and needs to find a new infectious disease doctor here. The patient says she has a history of depression but she has been taken off of all her pills and she currently denies any depression. CBC/BMP: 07/23/16 0832 07/23/16 0832 Significant Findings Laboratory Tests Test 07/21/16 07/21/16 07/22/16 07/23/16 11:38 18:00 05:17 08:32 Total Creatine Kinase 1633 U/L 809 U/L 394 U/L (26-192) (26-192) (26-192) Creatine Kinase MB 13.7 NG/ML 6.3 NG/ML (0.5-3.6) (0.5-3.6) Troponin I LESS THAN 0.02 LESS THAN 0.02 NG/ML NG/ML (0.02-0.05) (0.02-0.05) Percent CD3-/CD16+/CD56+ Cells 3 % (4-25) Red Blood Count 3.57 MIL/MM3 3.64 MIL/MM3 (4.00-5.30) (4.00-5.30) Hemoglobin 10.2 GM/DL 10.4 GM/DL (11.6-15.3) (11.6-15.3) Hematocrit 31.7 % 32.5 % (35.0-46.0) (35.0-46.0) Lymphocytes (%) (Auto) 50.2 % (9.0-44.0) Neutrophils # (Auto) 1.7 TH/MM3 (1.8-7.7) Chloride Level 109 MEQ/L 110 MEQ/L (98-107) (98-107) Calcium Level 8.2 MG/DL (8.5-10.1) Mean Corpuscular Hemoglobin 31.9 % Concent (32.0-36.0) 25-Hydroxy Vitamin D Total 7.1 ng/ML (30-100) Imaging Last Impressions Ribs X-Ray 07/22/16 0000 Signed Impressions: Service Date/Time: July 18:11 - CONCLUSION: Slightly angulated left lateral fourth and fifth rib fractures Edmar Stewart MD Chest X-Ray 07/21/16 0353 Signed Impressions: Service Date/Time: Thursday, July 21, 2016 04:21 - CONCLUSION: Left lower lobe infiltrate. Stefano Barrera Jr., MD Thoracic Spine X-Ray 07/21/16 0000 Signed Impressions: Service Date/Time: Thursday, July 21, 2016 09:53 - CONCLUSION: No acute disease. Lyle Covington MD PE at Discharge GENERAL: This is a well-nourished, well-developed patient, in no apparent distress. SKIN: No rashes, ecchymoses or lesions. Cool and dry. HEAD: Atraumatic. Normocephalic. No temporal or scalp tenderness. EYES: Pupils equal round and reactive. Extraocular motions intact. No scleral icterus. No injection or drainage. ENT: Nose without bleeding, purulent drainage or septal hematoma. Throat without erythema, tonsillar hypertrophy or exudate. Uvula midline. Airway patent. NECK: Trachea midline. No JVD or lymphadenopathy. Supple, nontender, no meningeal signs. CARDIOVASCULAR: Regular rate and rhythm without murmurs, gallops, or rubs. Reproducible chest pain to palpation. RESPIRATORY: Clear to auscultation. Breath sounds equal bilaterally. No wheezes , rales, or rhonchi. GASTROINTESTINAL: Abdomen soft, nondistended. Tender to palpation in the left upper quadrant. No hepato-splenomegaly, or palpable masses. No guarding. MUSCULOSKELETAL: Left chest wall and left upper thoracic area tender to palpation. Extremities with trace edema. NEUROLOGICAL: Awake and alert. Cranial nerves II through XII intact. Motor and sensory grossly within normal limits. Five out of 5 muscle strength in all muscle groups. Normal speech. PSYCH: Mood and affect appropriate. Pt update on day of discharge The pt said she was feeling a lot better. She said the abdominal binder was helping. She said she was aware she had low vitamin D levels and she said she would take the medications as directed. She also believes she has had a bone density test that was normal. She was looking forward to going home. Hospital Course Depression The patient was Crawford acted after having an argument with her sister. The patient denies having intention of hurting her sister for herself. Psychiatry was consulted and the Crawford Act has been lifted. She will continue her home medications. Rib fractures/ CAP The patient has had chest and back pain for the past few days. Breathing deeply makes it worse. She has associated cough and sputum production. Chest x -ray with left lower lobe infiltrate. Troponins were negative. EKG without evidence of ischemia. Thoracic x ray unremarkable. Rib x ray showed slightly angulated left lateral fourth and fifth rib fractures. She was treated for pneumonia with ceftriaxone and azithromycin. She will complete a course of Ceftin and azithromycin. Sputum culture grew normal erika. Blood cultures were negative. She received oxygen and nebs as needed. She received pain control with a bowel regimen. We added standing ibuprofen. PT evaluated the pt. An abdominal binder was placed. We checked vitamin D levels and they were low. The pt was started on supplementation. She will follow up with her PCP. Rhabdomyolysis CPK noted to be over 2000 on admission. The patient endorsed dehydration and has been consuming large amounts of alcohol. Improved. She received half-normal saline. Her diet was advanced. Alcohol abuse Alcohol level was 229 on admission. She was placed on CIWA protocol and seizure precautions. She received mvi, folate and thiamine daily. She received cessation instruction. She did not display evidence of withdrawal. Nicotine/ Cocaine/ MJ use Tox screen positive for cocaine. She received cessation instruction and a nicotine patch. HIV Last seen by ID one month ago. She needs to find an ID doctor in the area. CXR with infiltrate. CD4 count 923. She received antibiotics for pneumonia as above. She was continued on her antiretrovirals. Pt Condition on Discharge: Stable Discharge Disposition: Discharge Home Discharge Time: > 30 minutes Discharge Instructions DIET: Follow Instructions for: As Tolerated, No Restrictions Activities you can perform: Weight Bearing as Andra Follow up Referrals: PCP Follow-up - 1 Week New Medications: Azithromycin (Azithromycin) 250 Mg Tab 250 MG PO DAILY Take dose 07/25 Infection #1 Ref 0 TAB Cefuroxime (Ceftin) 500 Mg Tab 500 MG PO BID Infection #8 Ref 0 TAB Ergocalciferol (Drisdol) 50,000 Unit Cap 57521 UNITS PO Q7D vitamin d deficiency #8 CAP Oxycodone (Oxycodone) 5 Mg Tab 5 MG PO Q4H PRN pain #20 TAB Continued Medications: Atazanavir Sulfate (Reyataz) 150 Mg Cap 300 MG PO DAILY CAP Citalopram Hydrobromide (Celexa) 40 Mg Tab 40 MG PO DAILY TAB Emtricitabine-Tenofovir Disopr (Truvada) Tab 1 TAB PO DAILY TAB Meloxicam (Mobic) 15 Mg Tab 15 MG PO BID TAB Quetiapine Fumarate (Seroquel) 25 Mg Tab 25 MG PO AT 12 NOON TAB Quetiapine Fumarate 100 mg (Seroquel 100 mg) 100 Mg Tab 100 MG PO HS TAB Ritonavir (Norvir) 100 Mg Cap 100 MG PO DAILY CAP Additional Information Discharge time greater than 30 minutes Marcell Treviño DO July 24, 2016 09:07 Quetiapine Fumarate 100 mg (Seroquel 100 mg) 100 Mg Tab 100 MG PO HS TAB Ritonavir (Norvir) 100 Mg Cap 100 MG PO DAILY CAP Marcell Treviño DO July 24, 2016 09:07
[2016-07-24] MEDS: SENNOSIDES 8.6 MG TAB PO SCH (09:13)
[2016-07-24] MEDS: MULTIVITAMIN TAB PO SCH (09:13)
[2016-07-24] MEDS: THIAMINE HCL 100 MG TAB PO SCH (09:13)
[2016-07-24] MEDS: EMTRICITABINE/TENOFOVIR 200 MG/300 MG TAB PO SCH (09:13)
[2016-07-24] MEDS: NICOTINE 7 MG/24 HR PATCH T-DERMAL SCH (09:14)
[2016-07-24] MEDS: ATAZANAVIR 150 MG CAP PO SCH (09:14)
[2016-07-24] MEDS: FOLIC ACID 1 MG TAB PO SCH (09:14)
[2016-07-24] MEDS: RITONAVIR 100 MG TAB PO SCH (09:14)
[2016-07-24] MEDS: cefTRIAXone INJ 1,000 MG in SODIUM CHLORIDE 0.9% INJ 100 ML IV SCH (09:18)
[2016-07-24] MEDS: AZITHROMYCIN INJ 500 MG in SODIUM CHLOR 0.9% 250 ML INJ 250 ML IV SCH (09:20)
[2016-07-24] MEDS: SODIUM CHLORIDE 0.9% FLUSH 10 ML FLUSH IV FLUSH SCH (09:20)
[2016-07-24 11:44] VITALS: BP 153/82; PULSE 77; RESP 18; TEMP 97.4; O2SAT 96
== END 2016-07-24 12:53 | disposition home or self-care (01) | DRG 557 ==
LOC: NEPE 03:20 → NEDA 05:31 → NEPGCP 06:26 → OBSVTOIN 12:23 → N04A 07-22 15:51
PROVIDERS: ADMIT Hospitalist; ATTEND Hospitalist
DX: M62.82 Rhabdomyolysis (principal); B20 Human immunodeficiency virus [HIV] disease; J18.9 Pneumonia, unspecified organism; F10.14 Alcohol abuse with alcohol-induced mood disorder; S22.42XA Multiple fractures of ribs, left side, initial encounter for closed fracture; F20.9 Schizophrenia, unspecified; F31.9 Bipolar disorder, unspecified; F17.210 Nicotine dependence, cigarettes, uncomplicated; J45.909 Unspecified asthma, uncomplicated; F41.9 Anxiety disorder, unspecified; K59.00 Constipation, unspecified; M19.90 Unspecified osteoarthritis, unspecified site; Z81.8 Family history of other mental and behavioral disorders; Z82.3 Family history of stroke; E86.0 Dehydration; Y90.7 Blood alcohol level of 200-239 mg/100 ml; F14.90 Cocaine use, unspecified, uncomplicated; X50.0XXA Overexertion from strenuous movement or load, initial encounter; Y93.9 Activity, unspecified; Y92.9 Unspecified place or not applicable; Y99.9 Unspecified external cause status
CPT/HCPCS: 71010; 71101; 72072; 80048; 80053; 80307; 81001; 82306; 82550; 82552; 83690; 83735; 84484; 85025; 85027; 86355; 86357; 86359; 86360; 87040; 87070; 87205; 93005; 96374; 96375; C9113; J0131; J0456; J0696; J7030; J7040; J7050